=== PATIENT | female | born 1980 | race African-American/Black ===

== ENCOUNTER 2016-12-07 10:56 | Emergency (ER) | payer BC ==
[~2016-12-07] VITALS: Ht 167.6 cm; Wt 122.0 kg
[~2016-12-07 10:56] MED LIST: IRON325T2 PO; PHEN37.52 PO
[2016-12-07 11:06] VITALS: BP 150/88; PULSE 79; RESP 16; TEMP 98.5; O2SAT 100
--- NOTE | 2016-12-07 11:27 | PD ---
HPI Chief Complaint: Cold / Flu Symptoms Time Seen by Provider: 11:24 Travel History International Travel<30 days: No Contact w/Intl Traveler<30days: No Traveled to known affect area: No History of Present Illness HPI 36-year-old female presents to the emergency department for evaluation of cold symptoms. Patient states that she started with sinus pressure and cough 1 week ago. Patient does state that her cough is improving. She states that 2 days ago, her symptoms worsened with sore throat, chills, fever. She states she took ibuprofen approximately 30 minutes prior to arrival for fever. She states her fever was up to 103.0 yesterday. She has reports nausea and diarrhea 2 episodes today. She denies any vomiting. She has a history of iron deficiency anemia, but denies any other medical history she currently takes no prescribed medications. 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 PFSH Past Medical History Anemia: Yes Blood Disorders: No Diminished Hearing: No Immunizations Current: Yes ?: Not LMP: 11/18/2016 : 2 Para: 2 Social History Alcohol Use: Yes (2-3 XS MONTH) Tobacco Use: No Substance Use: No Allergies-Medications (Allergen,Severity, Reaction): Coded Allergies: Latex (Verified Allergy, Intermediate, RASH, ITCHING, 12/07/16) Codeine (Verified Adverse Reaction, Intermediate, N/V, 12/07/16) Reported Meds & Prescriptions Reported Meds & Active Scripts Active No Active Prescriptions or Reported Medications Review of Systems Except as stated in HPI: all other systems reviewed are Neg Physical Exam Narrative GENERAL: Well-developed well-nourished female patient, ambulatory. Afebrile. SKIN: Warm and dry. HEAD: Normocephalic. Atraumatic. Patient has tenderness over bilateral frontal and maxillary sinuses. ENT: Mucosa pink and moist. Erythema without exudates noted. No uvular edema. No uvular, palatal, or tonsillar deviation. Airway patent. Nasal turbinates appear normal without nasal blood, purulent drainage or septal hematoma. Bilateral tympanic membranes are clear without erythema or perforation. EYES: No scleral icterus. No injection or drainage. NECK: Supple, trachea midline. No JVD or lymphadenopathy. CARDIOVASCULAR: Regular rate and rhythm without murmurs, gallops, or rubs. RESPIRATORY: Breath sounds equal bilaterally. No accessory muscle use. Lungs sounds are clear to auscultation. GASTROINTESTINAL: Abdomen soft, non-tender, nondistended. MUSCULOSKELETAL: No cyanosis, or edema. Data Data Last Documented VS Vital Signs Date Time Temp Pulse Resp B/P Pulse Ox O2 Delivery O2 Flow Rate FiO2 12/07/16 12:00 16 100 Room Air 12/07/16 11:06 98.5 79 150/88 Orders Group A Rapid Strep Screen (12/07/16 11:23) Influenzae A/B Antigen (12/07/16 11:23) Chest, Single Ap (12/07/16 ) Strep Culture (Group A) (12/07/16 11:40) MDM Medical Decision Making Medical Screen Exam Complete: Yes Emergency Medical Condition: Yes Medical Record Reviewed: Yes Interpretation(s) chest x-ray - CONCLUSION: No acute disease. Differential Diagnosis Strep pharyngitis versus viral pharyngitis versus acute sinusitis versus influenza versus pneumonia versus URI versus bronchitis Narrative Course 36-year-old female presents to the emergency department for evaluation of cough for 1 week. She does state her cough is improving. However, 2 days ago, she started with chills, fever, sore throat. Influenza and strep swabs are ordered and pending. Chest x-ray is ordered and pending. Influenza is negative. Strep is negative. Chest x-ray shows no acute disease. Symptoms are consistent with sinusitis. She'll be started on Augmentin. She is instructed to take Tylenol or Ibuprofen [id number], Drink Plenty of Fluids and Follow up with Her Primary Care Physician. She Is Instructed to Return for Any Acute Worsening of Symptoms. The patient was discharged in stable condition with instructions, including return instructions and follow up instructions. Diagnosis Primary Impression: Acute sinusitis Qualified Code: J01.00 - Acute non-recurrent maxillary sinusitis Referrals: Primary Care Physician call for appointment Patient Instructions: General Instructions, Sinusitis (ED) Departure Forms: Tests/Procedures, Work Release Enter return to work date: Dec 11, 2016 Additional Instructions: Take Augmentin as directed until gone. Take with food to prevent GI upset. [id number] Tylenol or ibuprofen as needed for pain. Rest. Drink plenty of fluids. Follow-up with your primary care physician. Return to the emergency department for any acute worsening of symptoms. Med/Other Pt SpecificInfo: Prescription(s) given Scripts Amoxicillin-Clavulanate (Augmentin)875-125 mg [id number] Mg PO BID 10 Days Ref 0 not for use in CrCl <30 ml/min. Prov:Karlene Loaiza 12/07/16 Disposition: 01 DISCHARGE HOME Condition: Stable Karlene Loaiza Dec 07, 2016 11:27
--- NOTE | 2016-12-07 11:46 | RADHPO ---
EXAM DATE/TIME: 12/07/2016 11:25 [facility] COMPARISON: No previous studies available for comparison. INDICATIONS : Fever and congestion for 2 days. MEDICAL HISTORY : None. SURGICAL HISTORY : None. ENCOUNTER: Initial ACUITY: 2 days PAIN SCORE: 2/10 LOCATION: Bilateral chest FINDINGS: A single view of the chest demonstrates the lungs to be symmetrically aerated without evidence of mas s, infiltrate or effusion. The cardiomediastinal contours are unremarkable. Osseous structures are intact. CONCLUSION: No acute disease. Meli Zamarripa MD on December 07, 2016 at 11:44 Board Certified Radiologist. This report was verified electronically.
[2016-12-07] MEDS ORDERED: AUGM875T PO (12:24)
[2016-12-07 13:08] VITALS: BP 146/84
== END 2016-12-07 13:10 | disposition home or self-care (01) ==
LOC: PHEFT 10:56
DX: J01.90 Acute sinusitis, unspecified (principal); D64.9 Anemia, unspecified
CPT/HCPCS: 71010; 87081; 87804; 87880; 99284